=== PATIENT | male | born 1980 | race Two or more races ===

== ENCOUNTER 2018-08-29 01:46 | Inpatient (IN) | payer SELFPAY ==
[2018-08-29] MEDS ORDERED: Sodium Chloride 0.9% 1,000 ML IV STA (02:08)
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
[2018-08-29 02:30] LABS: BASO % 0.3 % (0.0-2.0); EOS % 0.4 % (0.0-4.0); HEMOGLOBIN 14.9 g/dL (12.0-18.0); LYMPH # 3.2 K/uL (1.0-4.3); LYMPH % 32.5 % (20.0-40.0); MEAN CELL VOLUME 92.1 fl (80.0-94.0); MEAN CORPUSCULAR HEMOGLOBIN 31.2 pg (27.0-31.0); MEAN CORPUSCULAR HGB CONC 33.9 g/dL (33.0-37.0); MEAN PLATELET VOLUME 8.9 fl (7.2-11.7); MONO # 0.7 K/uL (0.0-0.8); MONO % 6.6 % (0.0-10.0); NEUT # 5.9 K/uL (1.8-7.0); NEUT % 60.2 % (50.0-75.0); NRBC % 0.2 % (0.0-0.0); RBC 4.78 Mil/uL (4.40-5.90); RED CELL DISTRIBUTION WIDTH 12.4 % (11.5-14.5); WHITE BLOOD COUNT 9.9 K/uL (4.8-10.8)
[2018-08-29 02:34] LABS: PROTHROMBIN TIME 11.3 Seconds (9.8-13.1)
[2018-08-29 02:37] LABS: BLOOD UREA NITROGEN 17 mg/dl (9-20); CALCIUM 8.7 mg/dL (8.4-10.2); GFR NON-AFRICAN AMERICAN > 60; PARTIAL THROMBOPLASTIN TIME 27.1 Seconds (25.6-37.1)
[2018-08-29 04:04] LABS: CK-MB 0.53 ng/mL (0.0-3.38)
[2018-08-29 05:26] LABS: URINE BACTERIA RARE (<OCC); URINE BILIRUBIN NEGATIVE (NEGATIVE); URINE BLOOD MODERATE (NEGATIVE); URINE CLARITY CLEAR (Clear); URINE COLOR STRAW (YELLOW); URINE GLUCOSE (UA) NEG (NEGATIVE); URINE LEUKOCYTE ESTERASE NEG Leu/uL (Negative); URINE PROTEIN NEGATIVE (NEGATIVE); URINE UROBILINOGEN 0.2-1.0 mg/dL (0.2-1.0)
[2018-08-29 06:26] LABS: BARBITURATES, UR NEGATIVE (NEGATIVE); BENZODIAZEPINES, UR NEGATIVE (NEGATIVE); OPIATES, UR NEGATIVE (NEGATIVE); PHENCYCLIDINE, UR NEGATIVE (NEGATIVE)
[2018-08-29] MEDS ORDERED: Potassium Ch 20mEq in D5-1/2NS 1,000 ML IV SCH (06:45)
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
[2018-08-29 07:17] VITALS: BMI 26.6
[2018-08-29] MEDS ORDERED: Multivitamin (MVI) 10 ML, Thiamine 100 MG, Folic Acid 1 MG in Sodium Chloride 0.9% 1,00... IV ONE (07:23)
--- NOTE | 2018-08-29 07:56 | RAD ---
Date of service: 08/29/2018 PROCEDURE: CHEST RADIOGRAPH, 1 VIEW HISTORY: tachycarida COMPARISON: None available. FINDINGS: LUNGS: Clear. PLEURA: No pneumothorax or pleural fluid seen. CARDIOVASCULAR: No aortic atherosclerotic calcification present. Normal. OSSEOUS STRUCTURES: No significant abnormalities. VISUALIZED UPPER ABDOMEN: Normal. OTHER FINDINGS: None. IMPRESSION: No active disease.
[2018-08-29 08:08] LABS: ALB/GLOB RATIO 1.5 (1.0-2.1); BILIRUBIN,DIRECT 0.3 mg/ml (0.0-0.4)
--- NOTE | 2018-08-29 08:13 | CARD ---
APPROVED REPORT Date of service: 08/29/2018 EKG Measurement Heart [id number] <Conclusion> Sinus tachycardia Otherwise normal ECG
[2018-08-29] MEDS ORDERED: Enoxaparin 40 mg Syringe SC SCH (09:00)
--- NOTE | 2018-08-29 09:30 | CT ---
Date of service: 08/29/2018 PROCEDURE: CT HEAD WITHOUT CONTRAST. HISTORY: AMS COMPARISON: None available. TECHNIQUE: Axial computed tomography images were obtained through the head/brain without intravenous contrast. Radiation dose: Total exam DLP = 1035.71 mGy-cm. This CT exam was performed using one or more of the following dose reduction techniques: Automated exposure control, adjustment of the mA and/or kV according to patient size, and/or use of iterative reconstruction technique. FINDINGS: HEMORRHAGE: No intracranial hemorrhage. BRAIN: No mass effect or edema. No atrophy or chronic microvascular ischemic changes. VENTRICLES: Unremarkable. No hydrocephalus. CALVARIUM: Unremarkable. PARANASAL SINUSES: Unremarkable as visualized. No significant inflammatory changes. MASTOID AIR CELLS: Unremarkable as visualized. No inflammatory changes. OTHER FINDINGS: None. IMPRESSION: Normal CT of the Head. Concordant results (preliminary interpretation) provided by [facility].
[2018-08-29] MEDS ORDERED: AMMONIA IH ONE (12:54)
[2018-08-29] MEDS ORDERED: Ammonia 2% Inhalant ONE (13:02)
[2018-08-29] MEDS ORDERED: Ammonia 2% Inhalant IH ONE (13:30)
[2018-08-29] MEDS ORDERED: diaZEpam 10 mg/2 ml Inj IVP ONE (13:52)
[2018-08-29 18:04] LABS: PROLACTIN 10.2 ng/mL (3.7-17.9)
[2018-08-29] MEDS: Potassium Ch 20mEq in D5-1/2NS 1,000 ML IV SCH (21:12)
[2018-08-30] MEDS: Potassium Ch 20mEq in D5-1/2NS 1,000 ML IV SCH ×2 (00:30→12:44)
[2018-08-30 06:18] LABS: BASO % 0.2 % (0.0-2.0); EOS % 0.6 % (0.0-4.0); HEMOGLOBIN 15.9 g/dL (12.0-18.0); LYMPH # 2.2 K/uL (1.0-4.3); LYMPH % 30.1 % (20.0-40.0); MEAN CELL VOLUME 93.1 fl (80.0-94.0); MEAN CORPUSCULAR HEMOGLOBIN 31.1 pg (27.0-31.0); MEAN CORPUSCULAR HGB CONC 33.4 g/dL (33.0-37.0); MONO # 0.6 K/uL (0.0-0.8); MONO % 8.9 % (0.0-10.0); NEUT # 4.3 K/uL (1.8-7.0); NEUT % 60.2 % (50.0-75.0); NRBC % 0.1 % (0.0-0.0); RBC 5.11 Mil/uL (4.40-5.90); RED CELL DISTRIBUTION WIDTH 12.6 % (11.5-14.5); WHITE BLOOD COUNT 7.2 K/uL (4.8-10.8)
[2018-08-30 06:31] LABS: ALB/GLOB RATIO 1.5 (1.0-2.1); ALBUMIN 3.9 g/dL (3.5-5.0); ALT/SGPT 36 U/L (21-72); AST/SGOT 28 U/L (17-59); BLOOD UREA NITROGEN 8 mg/dl (9-20); CALCIUM 8.1 mg/dL (8.4-10.2); GFR NON-AFRICAN AMERICAN > 60
--- NOTE | 2018-08-30 07:22 | CP.PCM.PN ---
<Bennie Vasquez - Last Filed: 08/30/18 13:14> Subjective - Date & Time of Evaluation Date of Evaluation: 08/30/18 Time of Evaluation: 07:00 - Subjective Subjective: Patient seen and examined today. Patient is conscious but verbally unresponsive. Patient is not catatonic, breath on own and no need of ventilators. Pain and touch stimulant +, patient was placed on Ativan. Objective - Vital Signs/Intake and Output Vital Signs (last 24 hours): Temp Pulse Resp BP Pulse Ox 97.2 F L 71 20 121/79 99 08/30/18 05:00 08/30/18 05:00 08/30/18 05:00 08/30/18 05:00 08/30/18 05:00 - Medications Medications: Current Medications Acetaminophen (Tylenol 650 Mg Supp) 650 mg ID Q6 PRN PRN Reason: Fever >100.4 F Enoxaparin Sodium (Lovenox) 40 mg SC DAILY [facility]; Protocol Potassium Chloride/Dextrose/Sod Cl (Potassium Chl 20 Meq In D5-1/2ns) 1,000 mls @ 125 mls/hr IV .Q8H [facility] Stop: 08/30/18 17:29 Last Admin: 08/30/18 00:30 Dose: Not Given Lorazepam (Ativan) 1 mg IVP Q4H [facility] - Labs Labs: 08/30/18 05:45 08/30/18 05:45 PT 11.3 Seconds (9.8-13.1) 08/29/18 02:13 INR 1.0 08/29/18 02:13 APTT 27.1 Seconds (25.6-37.1) 08/29/18 02:13 - Constitutional Appears: No Acute Distress - Head Exam Head Exam: ATRAUMATIC, NORMAL INSPECTION, NORMOCEPHALIC - Eye Exam Eye Exam: EOMI, Normal appearance, PERRL Pupil Exam: NORMAL ACCOMODATION, PERRL - ENT Exam ENT Exam: Mucous Membranes Moist, Normal Exam - Neck Exam Neck Exam: Full ROM, Normal Inspection - Respiratory Exam Respiratory Exam: Clear to Ausculation Bilateral, NORMAL BREATHING PATTERN - Cardiovascular Exam Cardiovascular Exam: Tachycardia, +S1, +S2 - GI/Abdominal Exam GI & Abdominal Exam: Soft, Normal Bowel Sounds - Extremities Exam Additional comments: extremities able to passive movement, but no active movement. - Neurological Exam Neurological Exam: Awake - Skin Skin Exam: Dry, Intact, Normal Color, Warm Assessment and Plan - Assessment and Plan (Free Text) Assessment: 38 YO Male with PMhx of MD (per EMT, unable to verify by pt), and unknown hx if admitted for AMS. Complete chart reviewed including blood work, urine, ekg, and imaging. Patient is more awake, but still cant move, or talk, Patient still same position. AMS, acute, possible conversion disorder -questionable AMS of unknown origin unable to r/o personal gain -CT head; No acute intracranial abnormality -CBC/CMP negative -Urine tox negative except + for alcohol 25 -Total CK 348 -prolactin and ammonia negative -psych consulted no psychaitric compaints patient is not catatonic -F/U neuro -Pt on ativan for agitation MD, questionable -unable to verify -trop neg <Bianka Díaz - Last Filed: 08/30/18 17:16> Objective - Vital Signs/Intake and Output Vital Signs (last 24 hours): Temp Pulse Resp BP Pulse Ox 98.2 F 65 18 125/84 96 08/30/18 15:55 08/30/18 15:55 08/30/18 15:55 08/30/18 15:55 08/30/18 15:55 - Medications Medications: Current Medications Acetaminophen (Tylenol 650 Mg Supp) 650 mg ID Q6 PRN PRN Reason: Fever >100.4 F Enoxaparin Sodium (Lovenox) 40 mg SC DAILY DALE; Protocol Last Admin: 08/30/18 16:46 Dose: 40 mg Potassium Chloride/Dextrose/Sod Cl (Potassium Chl 20 Meq In D5-1/2ns) 1,000 mls @ 125 mls/hr IV .Q8H [facility] Stop: 08/30/18 17:29 Last Admin: 08/30/18 12:44 Dose: 125 mls/hr Lorazepam (Ativan) 0.5 mg IVP Q4H DALE - Labs Labs: 08/30/18 05:45 08/30/18 05:45 PT 11.3 Seconds (9.8-13.1) 08/29/18 02:13 INR 1.0 08/29/18 02:13 APTT 27.1 Seconds (25.6-37.1) 08/29/18 02:13 Attending/Attestation - Attestation I have personally seen and examined this patient.: Yes I have fully participated in the care of the patient.: Yes I have reviewed all pertinent clinical information, including history, physical exam and plan: Yes Notes (Text): AMS prob Conversion Disorder Sinus Tachycardia resolved Pt remains not verbally responsive with minimal motor movement though not catatonic unclear if acting out for secondary gain-( avoiding incarceration ) Psych consulted- recommended Neurology eval would shake when approached but would remain calm when staff is not there Prolactin normal and CPK not significant Ativan prn given Alcohol level 25 on admission started Thiamine and FA IVF hydration
[2018-08-30] MEDS ORDERED: Enoxaparin 40 mg Syringe SC SCH (09:00)
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
[2018-08-31 06:28] LABS: BASO % 0.2 % (0.0-2.0); EOS % 0.5 % (0.0-4.0); HEMOGLOBIN 15.8 g/dL (12.0-18.0); LYMPH # 1.8 K/uL (1.0-4.3); LYMPH % 19.7 % (20.0-40.0); MEAN CELL VOLUME 92.7 fl (80.0-94.0); MEAN CORPUSCULAR HEMOGLOBIN 31.3 pg (27.0-31.0); MEAN CORPUSCULAR HGB CONC 33.7 g/dL (33.0-37.0); MEAN PLATELET VOLUME 8.6 fl (7.2-11.7); MONO # 0.8 K/uL (0.0-0.8); MONO % 8.4 % (0.0-10.0); NEUT # 6.5 K/uL (1.8-7.0); NEUT % 71.2 % (50.0-75.0); NRBC % 0.1 % (0.0-0.0); RBC 5.05 Mil/uL (4.40-5.90); RED CELL DISTRIBUTION WIDTH 12.8 % (11.5-14.5); WHITE BLOOD COUNT 9.1 K/uL (4.8-10.8)
[2018-08-31 06:31] LABS: ALB/GLOB RATIO 1.4 (1.0-2.1); ALBUMIN 3.7 g/dL (3.5-5.0); ALT/SGPT 35 U/L (21-72); AST/SGOT 26 U/L (17-59); BLOOD UREA NITROGEN 8 mg/dl (9-20); CALCIUM 8.4 mg/dL (8.4-10.2); GFR NON-AFRICAN AMERICAN > 60
--- NOTE | 2018-08-31 06:34 | CP.PCM.PN ---
Subjective - Date & Time of Evaluation Date of Evaluation: 08/31/18 Time of Evaluation: 07:00 - Subjective Subjective: Pt seen and examined at bedside. No acute event overnight. Police in room, no change since yesterday. Able to urinate. Objective - Vital Signs/Intake and Output Vital Signs (last 24 hours): Temp Pulse Resp BP Pulse Ox 98.4 F 90 18 115/76 98 08/31/18 05:11 08/31/18 05:11 08/31/18 05:11 08/31/18 05:11 08/31/18 05:11 - Medications Medications: Current Medications Acetaminophen (Tylenol 650 Mg Supp) 650 mg [place] Q6 PRN PRN Reason: Fever >100.4 F Enoxaparin Sodium (Lovenox) 40 mg SC DAILY [facility]; Protocol Last Admin: 08/30/18 16:46 Dose: 40 mg Lorazepam (Ativan) 0.5 mg IVP Q4H PRN PRN Reason: Symptoms of alcohol withdrawl - Labs Labs: 08/30/18 05:45 08/31/18 06:00 PT 11.3 Seconds (9.8-13.1) 08/29/18 02:13 INR 1.0 08/29/18 02:13 APTT 27.1 Seconds (25.6-37.1) 08/29/18 02:13 - Constitutional Appears: Well, Non-toxic, No Acute Distress - Head Exam Head Exam: ATRAUMATIC, NORMAL INSPECTION, NORMOCEPHALIC - Eye Exam Eye Exam: EOMI, Normal appearance, PERRL Pupil Exam: NORMAL ACCOMODATION, PERRL - ENT Exam ENT Exam: Mucous Membranes Moist, Normal Exam - Neck Exam Neck Exam: Full ROM, Normal Inspection - Respiratory Exam Respiratory Exam: Clear to Ausculation Bilateral, NORMAL BREATHING PATTERN - Cardiovascular Exam Cardiovascular Exam: REGULAR RHYTHM, +S1, +S2 - GI/Abdominal Exam GI & Abdominal Exam: Soft, Normal Bowel Sounds - Extremities Exam Additional comments: passive movement wnl - Back Exam Back Exam: NORMAL INSPECTION - Neurological Exam Neurological Exam: Alert, Awake - Psychiatric Exam Psychiatric exam: Normal Affect, Normal Mood - Skin Skin Exam: Dry, Intact, Normal Color, Warm Assessment and Plan - Assessment and Plan (Free Text) Assessment: 38 YO Male with PMhx of [place] (per EMT, unable to verify by pt), and unknown hx if admitted for AMS. Complete chart reviewed including blood work, urine, ekg, and imaging. Patient still unresponsive AMS, acute, possible conversion disorder -questionable AMS of unknown origin unable to r/o personal gain -CT head; No acute intracranial abnormality -CBC/CMP negative -Urine tox negative except + for alcohol 25 -Total CK 348 -Procalcitonin and ammonia negative -psych consulted no psychiatric complaints patient is not catatonic -EEG normal, neuro report no further neuro f/u needed -Pt on ativan for agitation -Patient will be discharge under police custody, possible to a psych unit DVT proph Heparin
[2018-08-31] MEDS ORDERED: Iohexol 240 (50 ml) PO ONE (08:16)
--- NOTE | 2018-08-31 09:08 | PCM.EEG ---
Electroencephalogram Report - Electroencephalogram Report Procedure Date: 08/30/18 Medication: Tylenol Interpretation: C Technical Information: This was a 16 -channel EEG, 1-channel EKG routine EEG performed using an Qloo machine. Electrodes were applied using the 10/20 international placement system. Start; 15;26 End; 16;11 Total; 45 min linical Information: seizures. During resting wakefulness there was a symmetric posterior dominant rhythm at 8. 5-9.5 Hz, 30-50 uV, which was reactive to eye opening and closing. Drowsiness (15;33) was associated with fragmentation of the posterior dominant rhythm and with slow roving eye movements. Light sleep (15;35)was recorded and was characterized by central vertex waves, sleep spindles, and bilateral theta slowing. Hyperventilation was not performed. Photic stimulation was performed and there were no changes on the record. Focal abnormality; none ECG was associated with a normal sinus rhythm with occasional PVCs. Impression: This is a normal awake drowsy and sleep electroencephalogram.
[2018-08-31] MEDS ORDERED: diaZEpam 10 mg/2 ml Inj IM ONE (12:30)
[2018-08-31] MEDS ORDERED: Mag&Al/Simet/Diphen/Lido 237 ML KIT PO ONE (14:45)
[2018-08-31] MEDS ORDERED: Pneumococcal 23-Valent Vaccine IM ONE (21:00)
[2018-09-01 06:30] LABS: HEMOGLOBIN 16.2 g/dL (12.0-18.0); MEAN CELL VOLUME 92.6 fl (80.0-94.0); MEAN CORPUSCULAR HGB CONC 33.5 g/dL (33.0-37.0); RBC 5.22 Mil/uL (4.40-5.90); RED CELL DISTRIBUTION WIDTH 12.6 % (11.5-14.5); WHITE BLOOD COUNT 8.1 K/uL (4.8-10.8)
[2018-09-01 06:49] LABS: BLOOD UREA NITROGEN 11 mg/dl (9-20); CALCIUM 8.6 mg/dL (8.4-10.2); GFR NON-AFRICAN AMERICAN > 60
[2018-09-01 08:02] VITALS: RESP 20
[2018-09-01 11:58] VITALS: BP 125/78; PULSE 119; TEMP 98.9; O2SAT 97
--- NOTE | 2018-09-01 13:02 | CP.PCM.DIS ---
Provider - Provider Date of Admission: 08/29/18 05:56 Attending physician: Terry Pagan Consults: 08/29/18 06:37 Psychiatry Consult Routine Comment: Consulting Provider: Sheridan Moya Consulting Physician: Sheridan Moya Reason for Consult: incarcerated male with AMS 08/30/18 09:39 Neurology Consult Routine Comment: Consulting Provider: Brent Gonzalez Consulting Physician: Brent Gonzalez Reason for Consult: AMS, unable to move, communicate Time Spent in preparation of Discharge (in minutes): 38 Diagnosis - Discharge Diagnosis (1) Malingering Status: Acute (2) Conversion disorder Status: Acute (3) Altered mental status Status: Ruled-out (4) Conversion mutism Status: Acute Hospital Course - Lab Results Lab Results: Micro Results 08/29/18 05:12 Urine Random Urine Culture - Final No Growth (<1,000 CFU/ML) Most Recent Lab Values WBC 8.1 K/uL (4.8-10.8) 09/01/18 05:40 RBC 5.22 Mil/uL (4.40-5.90) 09/01/18 05:40 Hgb 16.2 g/dL (12.0-18.0) 09/01/18 05:40 Hct 48.4 % (35.0-51.0) 09/01/18 05:40 MCV 92.6 fl (80.0-94.0) 09/01/18 05:40 MCH 31.0 pg (27.0-31.0) 09/01/18 05:40 MCHC 33.5 g/dL (33.0-37.0) 09/01/18 05:40 RDW 12.6 % (11.5-14.5) 09/01/18 05:40 Plt Count 204 K/uL (130-400) 09/01/18 05:40 MPV 8.6 fl (7.2-11.7) 08/31/18 06:00 Neut % (Auto) 71.2 % (50.0-75.0) 08/31/18 06:00 Lymph % (Auto) 19.7 % (20.0-40.0) L 08/31/18 06:00 [place] % (Auto) 8.4 % (0.0-10.0) 08/31/18 06:00 Eos % (Auto) 0.5 % (0.0-4.0) 08/31/18 06:00 Baso % (Auto) 0.2 % (0.0-2.0) 08/31/18 06:00 Neut # (Auto) 6.5 K/uL (1.8-7.0) 08/31/18 06:00 Lymph # (Auto) 1.8 K/uL (1.0-4.3) 08/31/18 06:00 [place] # (Auto) 0.8 K/uL (0.0-0.8) 08/31/18 06:00 Eos # (Auto) 0.0 K/uL (0.0-0.7) 08/31/18 06:00 Baso # (Auto) 0.0 K/uL (0.0-0.2) 08/31/18 06:00 PT 11.3 Seconds (9.8-13.1) 08/29/18 02:13 INR 1.0 08/29/18 02:13 APTT 27.1 Seconds (25.6-37.1) 08/29/18 02:13 Sodium 137 mmol/l (132-148) 09/01/18 05:40 Potassium 3.8 MMOL/L (3.6-5.0) 09/01/18 05:40 Chloride 99 mmol/L (98-107) 09/01/18 05:40 Carbon Dioxide 30 mmol/L (22-30) 09/01/18 05:40 Anion Gap 12 (10-20) 09/01/18 05:40 BUN 11 mg/dl (9-20) 09/01/18 05:40 Creatinine 1.1 mg/dl (0.8-1.5) 09/01/18 05:40 Est GFR ( Amer) > 60 09/01/18 05:40 Est GFR (Non-Af Amer) > 60 09/01/18 05:40 POC Glucose (mg/dL) 107 mg/dL (65-110) 08/29/18 15:20 Random Glucose 96 mg/dL (75-110) 09/01/18 05:40 Hemoglobin A1c 5.8 % (4.2-6.5) 08/29/18 15:23 Calcium 8.6 mg/dL (8.4-10.2) 09/01/18 05:40 Total Bilirubin 1.2 mg/dl (0.2-1.3) 08/31/18 06:00 Direct Bilirubin 0.3 mg/ml (0.0-0.4) 08/29/18 07:33 AST 26 U/L (17-59) 08/31/18 06:00 ALT 35 U/L (21-72) 08/31/18 06:00 Alkaline Phosphatase 38 U/L (38-126) 08/31/18 06:00 Ammonia < 9 umol/L (9-33) L 08/29/18 07:33 Total Creatine Kinase 348 U/L (55-170) H 08/30/18 05:45 CK-MB (Mass) 0.53 ng/mL (0.0-3.38) 08/29/18 02:13 Troponin I < 0.0120 ng/mL (0.00-0.120) 08/29/18 02:13 Total Protein 6.4 G/DL (6.3-8.2) 08/31/18 06:00 Albumin 3.7 g/dL (3.5-5.0) 08/31/18 06:00 Globulin 2.7 gm/dL (2.2-3.9) 08/31/18 06:00 Albumin/Globulin Ratio 1.4 (1.0-2.1) 08/31/18 06:00 TSH 3rd Generation 1.90 mIU/ML (0.46-4.68) 08/29/18 02:13 Prolactin 10.2 ng/mL (3.7-17.9) 08/29/18 07:33 Urine Color Straw (YELLOW) 08/29/18 05:12 Urine Clarity Clear (Clear) 08/29/18 05:12 Urine pH 6.0 (5.0-8.0) 08/29/18 05:12 Ur Specific [place] 1.009 (1.003-1.030) 08/29/18 05:12 Urine Protein Negative mg/dL (NEGATIVE) 08/29/18 05:12 Urine Glucose (UA) Neg mg/dL (NEGATIVE) 08/29/18 05:12 Urine Ketones Trace mg/dL (NEGATIVE) 08/29/18 05:12 Urine Blood Moderate (NEGATIVE) 08/29/18 05:12 Urine Nitrate Negative (NEGATIVE) 08/29/18 05:12 Urine Bilirubin Negative (NEGATIVE) 08/29/18 05:12 Urine Urobilinogen 0.2-1.0 mg/dL (0.2-1.0) 08/29/18 05:12 Ur Leukocyte Esterase Neg [place]/uL (Negative) 08/29/18 05:12 Urine RBC (Auto) 39 /hpf (0-3) H 08/29/18 05:12 Urine Microscopic WBC 1 /hpf (0-5) 08/29/18 05:12 Urine Bacteria Rare (<OCC) 08/29/18 05:12 Urine Opiates Screen Negative (NEGATIVE) 08/29/18 05:04 Urine Methadone Screen Negative (NEGATIVE) 08/29/18 05:04 Ur Barbiturates Screen Negative (NEGATIVE) 08/29/18 05:04 Ur Phencyclidine Scrn Negative (NEGATIVE) 08/29/18 05:04 Ur Amphetamines Screen Negative (NEGATIVE) 08/29/18 05:04 U Benzodiazepines Scrn Negative (NEGATIVE) 08/29/18 05:04 U Oth Cocaine Metabols Negative (NEGATIVE) 08/29/18 05:04 U Cannabinoids Screen Negative (NEGATIVE) 08/29/18 05:04 Alcohol, Quantitative 25 mg/dl (0-10) H 08/29/18 02:13 Blood Type AB NEGATIVE 08/29/18 02:13 Blood Type Confirm AB NEGATIVE 08/29/18 03:51 Antibody Screen Negative 08/29/18 02:13 BBK History Checked No verified bt 08/29/18 02:13 - Hospital Course Hospital Course: 38 YO Male with PMhx of [place] (per EMT, unable to verify by pt), was brought by police due AMS. Upon presentation patient had tachycardia, otherwise vital was normal. Patient refuse to talk, he was stiff, not moving, a full, shacking his self as if he is having a seizure. Full work up is done : CBC, CMP, UA, EKG, Ct Head, it was negative. Consults during stay: 08/30/18 Dr Contreras ( neurologist), Dr Moya( Psych) no acute disorder as from their point of view, possible conversion disorder vs secondary gain for avoiding [facility]. does not seem to be catatonic. EEG normal On 08/31/18: We discussed with patient about conversion disorder, and informed him that will be discharge under police custody and to be followed by Doctor in their facility. 1 hour later patient was able to talk, and move half of extremities, and was demanding a phone to call family. 09/01/18 Physical therapy was consulted: during his examination, patient refused to move RIGHT upper and lower extremities due to `` pain``. PT unable to make full examination, but recommend patient to be on a wheelchair, until patient get full recovery Patient chart is reviewed, patient is stable, medically cleared, No further intervention needed. Patient will be discharge under police custody Please call [phone] if any concern or questions. Discharge Exam - Head Exam Head Exam: ATRAUMATIC, NORMAL INSPECTION, NORMOCEPHALIC - Eye Exam Eye Exam: EOMI, Normal appearance, PERRL Pupil Exam: NORMAL ACCOMODATION, PERRL - Respiratory Exam Respiratory Exam: Clear to PA & Lateral, NORMAL BREATHING PATTERN, UNREMARKABLE - Cardiovascular Exam Cardiovascular Exam: REGULAR RHYTHM, +S1, +S2 - Back Exam Additional comments: Patient is refusing to move upper and lower RIGHT extremities - Neurological Exam Neurological exam: Alert, CN II-XII Intact, Oriented x3, Reflexes Normal - Psychiatric Exam Psychiatric exam: Normal Affect, Normal Mood - Skin Skin Exam: Dry, Intact, Normal Color, Warm Discharge Plan - Follow Up Plan Condition: FAIR Disposition: RELEASED IN POLICE CUSTODY Patient education suggested?: Yes Instructions: Conversion Disorder, Altered Mental Status (DC) Referrals: Brent Gonzalez MD [Medical Doctor] - Sheridan Moya MD [Medical Doctor] -
== END 2018-09-01 17:00 | DRG 880 ==
LOC: H.ER 01:46 → OBSVTOIN 05:56 → H.ERHOLD 05:56 → H.TEL 19:11
PROVIDERS: ADMIT Internal Medicine; ATTEND Internal Medicine
DX: F44.9 Dissociative and conversion disorder, unspecified (principal); Z76.5 Malingerer [conscious simulation]; R00.0 Tachycardia, unspecified; I25.2 Old myocardial infarction; Y90.1 Blood alcohol level of 20-39 mg/100 ml